=== PATIENT | male | born 1950 | race Caucasian/White ===

== ENCOUNTER 2016-09-12 20:30 | Emergency (ER) | payer MEDICARE, OTHER ==
[~2016-09-12] VITALS: Ht 167.6 cm; Wt 77.5 kg
[~2016-09-12 20:30] MED LIST: ASPI81TA3 PO; BACTDS PO; CETI1TAB6 PO; EMTR1TAB10 PO; FLUT9.9S NASAL; MECL25TA2 PO; MULT-762 PO
[2016-09-12 20:48] VITALS: Ht 167.6 cm; Wt 77.5 kg
[2016-09-12] MEDS ORDERED: KETOROLAC 15 MG INJ IM STA (21:26)
[2016-09-12] MEDS ORDERED: ACETAMINOPHEN 325 MG TAB PO ONE (21:30)
[2016-09-12] MEDS ORDERED: SODI126M NASAL (21:31)
[2016-09-12] MEDS ORDERED: FLUT9.9S NASAL (21:31)
[2016-09-12] MEDS ORDERED: LORA10TA3 PO (21:31)
[2016-09-12] MEDS ORDERED: TRAM50TA2 PO (21:31)
[2016-09-12 22:01] VITALS: BP 160/82; PULSE 78; RESP 18; TEMP 98.6
--- NOTE | 2016-09-12 22:18 | ERD ---
ER Documentation Chief Complaint Date/Time DATE: 09/12/16 TIME: 22:08 Chief Complaint Colds Symptoms with fever and Low back pain HPI 66-year-old male presents with chief complaint of nasal congestion and low back pain times weeks. States that he has been using Afrin for over 5 days, it is the only thing that provides relief of symptoms. He recently was seen at an urgent care with a told to discontinue use of Afrin, prescribed in loratadine and Flonase instead. He is out of these medications now. He denies sore throat , cough, shortness of breath, and fever. In addition he complains of exacerbation of low back pain, which he rates a 10 out of 10 in severity. States that he has a history of chronic back pain, has been diagnosed with herniated disks. His PCP suggested surgery, he refused. He has been taking 800 mg ibuprofen daily without any relief. He denies loss of bowel control, urinary incontinence, dysuria, numbness, and tingling. Denies recent injury. ROS All systems reviewed and are negative except as per history of present illness. Medications Home Meds Active Scripts Tramadol HCl (Tramadol HCl) 50 Mg Tablet, 50 MG PO Q4 Y for PAIN, #20 TAB Prov:Jennifer Brian PA-C 09/12/16 Sodium Chloride (Saline Nasal Mist) 126 Ml Mist, 1 SPRAY NASAL BID for 10 Days, #1 BOTTLE Prov:Jennifer Brian PA-C 09/12/16 Loratadine* (Loratadine*) 10 Mg Tablet, 10 MG PO DAILY, #30 TAB Prov:Jennifer Brian PA-C 09/12/16 Fluticasone Propionate (Flonase Allergy Relief) 9.9 Ml [place].susp, 2 SPRAY NASAL DAILY, #1 BOTTLE TO EACH NOSTRIL Prov:Jennifer Brian PA-C 09/12/16 Fluticasone Propionate (Flonase Allergy Relief) 9.9 Ml [place].susp, 1 SPRAY NASAL DAILY, #1 BOTTLE TO EACH NOSTRIL Prov:MARGARITO MCDUFFIE DO 05/25/16 Cetirizine/Pseudoephedrine (Zyrtec-D) 5-120 Mg Tab.er.12h, 1 TAB PO Q12, #14 TAB Prov:MARGARITO MCDUFFIE DO 05/25/16 Sulfamethoxazole-Trimethoprim* (Bactrim* DS) 800-160 Mg Tab, 1 TAB PO BID, #14 TAB Prov:MARGARITO MCDUFFIE DO 05/25/16 Meclizine Hcl* (Antivert*) 25 Mg Tablet, 25 MG PO Q6H Y for DIZZINESS, #20 TAB Prov:KD RENDON DO 12/11/15 Reported Medications Fushmttdcgixm-Ndonwlgqsat-Faujcqhsf (Complera) 1 Each Tablet, 1 TAB PO DAILY, TAB 06/15/14 Multivitamin (MULTI-VITAMIN DAILY) 1 Each Tablet, 1 TAB PO DAILY, TAB 06/15/14 Aspirin* (Aspirin* Chew) 81 Mg Tab.chew, 81 MG PO DAILY, TAB.CHEW 06/15/14 Allergies Allergies: Coded Allergies: No Known Allergies (Verified Allergy, Mild, 12/11/15) PMhx/Soc Medical and Surgical Hx: pt denies Medical Hx, pt denies Surgical Hx History of Surgery: No Anesthesia Reaction: No Hx Neurological Disorder: No Hx Respiratory Disorders: No Hx Cardiac Disorders: No Hx Psychiatric Problems: No Hx Miscellaneous Medical Probl: Yes (HIV) Hx Alcohol Use: No Hx Substance Use: No Hx Tobacco Use: No Smoking Status: Never smoker Physical Exam Vitals Vital Signs Date Time Temp Pulse Resp B/P Pulse Ox O2 Delivery O2 Flow Rate FiO2 09/12/16 20:48 101.1 91 20 131/76 100 Physical Exam GENERAL: Non-toxic. No apparent signs of distress. HEENT: Atraumatic. Bilateral eyes are PERRL EOM intact. Normal conjunctiva, no injection. No eyelid or lower eyelid swelling noted. Ears: Normal tympanic membrane, no erythema or bulging. No ear canal swelling. No ear discharge. Nose : Clear rhinorrhea. Throat: Oropharynx normal. Tongue pink and moist. No tonsillar swelling or tonsillar exudates. No lymphadenopathy. LUNGS: Clear to auscultation. No accessory muscle use. No wheezing, no crackles. No signs or symptoms of respiratory distress. HEART: Regular rate and rhythm. No murmurs, clicks, rubs or gallops. BACK: No midline tenderness, no costovertebral tenderness. No swelling, erythema or ecchymosis. EXTREMITIES: No peripheral cyanosis or edema. No focal pain or notable trauma. Full range of motion. Good capillary refill. NEURO: The patient moves all 4 extremities with 5/5 strength. Cranial nerves are grossly intact. Normal mental status for age. Good muscle tone. Negative straight leg raise bilaterally. SKIN: There is no apparent rash, petechiae, erythema or swelling. Good skin turgor. Results 24 hrs Current Medications Medications (Trade) Dose Ordered Sig/Rusty Route PRN Reason Start Time Stop Time Status Last Admin Dose Admin Acetaminophen (Tylenol Tab) 650 mg ONCE ONCE PO 09/12/16 21:30 09/12/16 21:31 DC 09/12/16 21:34 Ketorolac Tromethamine (Toradol) 15 mg ONCE STAT IM 09/12/16 21:26 09/12/16 21:29 DC 09/12/16 21:35 Procedures/MDM Patient presented nasal congestion and rhinorrhea. I told him to discontinue use of Afrin as the urgent care suggested as well, for risk of rhinitis medicamentosa. I explained that often should never be used for longer than 3 days. I explained that I would prescribe him Flonase and loratadine, as this is also provided relief, however he is out of his prescription for this. While the patient denied fever, he currently was febrile in triage. I ordered Tylenol. Patient was in no acute distress, stated that he feels fine. His lungs were CTAB, he has no tonsillar edema or erythema or exudate. TMs are pink and pearly and reactive to light reflex. I have low suspicion for otitis media, pneumonia, peritonsillar abscess, pharyngitis, and meningitis. In addition patient complained of exacerbation of low back pain. He denies any recent injury. He denies loss of bowel control or urinary incontinence. He has a normal neurological exam, negative straight leg raise bilaterally. He states he has chronic back pain from herniated disks. Has been taking ibuprofen daily without relief of symptoms. Notes that recent exacerbation is lasted 20 days. I explained that be prescribing a small amount of tramadol, and he should only be using this during episodes of severe back pain. Otherwise he should continue use of ibuprofen or follow-up with his PCP for further management, who already discussed surgical options. Patient was given 15 mg IM Toradol in the ER, states that he had mild relief of symptoms 40 minutes afterwards. At this time a low suspicion for cauda equina syndrome, cord compression, pyelonephritis, AAA, epi dural abscess, and osteomyelitis/ discitis. Patient is stable for discharge and outpatient management. Advised to follow- up with his PCP in 1-2 days. Departure Diagnosis: Primary Impression: Chronic back pain Back pain location: low back pain Back pain laterality: bilateral Sciatica presence: without sciatica Qualified Code: M54.5 - Chronic bilateral low back pain without sciatica Additional Impressions: Nasal congestion Allergic rhinitis Allergic rhinitis seasonality: seasonal Allergic rhinitis trigger: unspecified Qualified Code: J30.2 - Seasonal allergic rhinitis, unspecified allergic rhinitis trigger Condition: Good Patient Instructions: Self-Care for Low Back Pain, Allergic Rhinitis Additional Instructions: Llame al doctor MAANA y makyala rosy FABIO PARA DENTRO DE 1-2 BOSS.Dgale a la secretaria que nosotros le instruimos hacer esta fabio.Avise o llame si holm condicin se empeora antes de la fabio. Regresa aqui si peor o no mejor. Jennifer Brian PA-C Sep 12, 2016 22:17
== END 2016-09-12 22:08 | disposition home or self-care (01) ==
LOC: FTE 20:30
DX: M54.5 Low back pain (principal); R09.81 Nasal congestion; J30.2 Other seasonal allergic rhinitis; Z79.82 Long term (current) use of aspirin
CPT/HCPCS: 96372; 99284; J1885

== ENCOUNTER 2016-11-10 11:34 | Emergency (ER) | payer OTHER ==
[~2016-11-10] VITALS: Ht 172.7 cm; Wt 78.5 kg
[~2016-11-10 11:34] MED LIST changes: +LORA10TA3 PO; +SODI126M NASAL; +TRAM50TA2 PO
[2016-11-10 11:47] VITALS: Ht 172.7 cm; Wt 78.5 kg
[2016-11-10] MEDS ORDERED: traMADol 50 MG TAB PO ONE (12:30)
--- NOTE | 2016-11-10 14:05 | RADRPT ---
PROCEDURE: XR Bilateral Hips. CLINICAL INDICATION: Bilateral hip pain. TECHNIQUE: Four views. Frontal and lateral right hip. Frontal and lateral left hip. COMPARISON: No prior studies are available for comparison. FINDINGS: There is no fracture or dislocation. The soft tissues are normal. Articular surfaces are intact. There is no lytic or blastic lesion. The upper pelvis is not included on the images. IMPRESSION: 1. Unremarkable images of both hips. RPTAT: QQ .Anjum Lama MD, MD Date Time Electronically viewed and signed by .Anjum Lama MD, MD on 11/10/2016 14:04 .R/
[2016-11-10] MEDS ORDERED: NAPR-260 PO (14:11)
[2016-11-10] MEDS ORDERED: BENZ100C70 PO (14:12)
[2016-11-10] MEDS ORDERED: FLUT9.9S NASAL (14:13)
[2016-11-10] MEDS ORDERED: FLUT16SP17 NASAL (14:13)
--- NOTE | 2016-11-10 17:29 | ERD ---
ER Documentation Chief Complaint Date/Time DATE: 11/10/16 TIME: 17:26 Chief Complaint bilateral hip pain and sore throat x 20 days HPI Patient is a 66-year-old male with a past medical history of HIV that is undetectable is here for bilateral buttock pain and sore throat. He states that he has had a sore throat on and off with congestion for 10 days. He denies cough or shortness of breath or chest pain. He denies difficulty breathing. Denies headache or dizziness. He states that his hips and his buttocks have been hurting on and off for the last 1 month. He states that the pain comes and goes. He states that occasionally he has difficulty walking. He states that he possibly has sciatica. He denies any injury or trauma or falls. He denies radiation of pain. Denies back pain. Denies bowel or bladder incontinence. Denies leg pain or leg swelling. Denies recent travel or recent surgeries. She has no other complaints. ROS All systems reviewed and are negative except as per history of present illness. Medications Home Meds Active Scripts Fluticasone Propionate* (Fluticasone Propionate* Nasal) 50 Mcg/[place] - 16 Gm [place].susp, 1 SPRAY NASAL BID, #1 BOTTLE TO EACH NOSTRIL Prov:MANDO ZAMORANO PA-C 11/10/16 Benzonatate* (Tessalon Perle*) 100 Mg Capsule, 100 MG PO Q8H Y for COUGH for 14 Days, CAP Prov:MANDO ZAMORANO PA-C 11/10/16 Naproxen* (Naprosyn*) 500 Mg Tablet, 500 MG PO BID Y for PAIN AND/OR INFLAMMATION, #30 TAB Prov:MANDO ZAMOARNO PA-C 11/10/16 Tramadol HCl (Tramadol HCl) 50 Mg Tablet, 50 MG PO Q4 Y for PAIN, #20 TAB Prov:Jennifer Brian PA-C 09/12/16 Sodium Chloride (Saline Nasal Mist) 126 Ml Mist, 1 SPRAY NASAL BID for 10 Days, #1 BOTTLE Prov:Jennifer Brian PA-C 09/12/16 Loratadine* (Loratadine*) 10 Mg Tablet, 10 MG PO DAILY, #30 TAB Prov:Jennifer Brian PA-C 09/12/16 Fluticasone Propionate (Flonase Allergy Relief) 9.9 Ml [place].susp, 2 SPRAY NASAL DAILY, #1 BOTTLE TO EACH NOSTRIL Prov:Jennifer Brian PA-C 09/12/16 Fluticasone Propionate (Flonase Allergy Relief) 9.9 Ml [place].susp, 1 SPRAY NASAL DAILY, #1 BOTTLE TO EACH NOSTRIL [facility]/16 Cetirizine/Pseudoephedrine (Zyrtec-D) 5-120 Mg Tab.er.12h, 1 TAB PO Q12, #14 TAB [facility] 05/25/16 Sulfamethoxazole-Trimethoprim* (Bactrim* DS) 800-160 Mg Tab, 1 TAB PO BID, #14 TAB Prov[facility] 05/25/16 Meclizine Hcl* (Antivert*) 25 Mg Tablet, 25 MG PO Q6H Y for DIZZINESS, #20 TAB Prov:KD RENDON 12/11/15 Reported Medications Oyppxuakpvrok-Qkqwqxeejhv-Mmyhsggom (Complera) 1 Each Tablet, 1 TAB PO DAILY, TAB 06/15/14 Multivitamin (MULTI-VITAMIN DAILY) 1 Each Tablet, 1 TAB PO DAILY, TAB 06/15/14 Aspirin* (Aspirin* Chew) 81 Mg Tab.chew, 81 MG PO DAILY, TAB.CHEW 06/15/14 Allergies Allergies: Coded Allergies: No Known Allergies (Verified Allergy, Mild, 12/11/15) PMhx/Soc Medical and Surgical Hx: pt denies Medical Hx, pt denies Surgical Hx History of Surgery: No Anesthesia Reaction: No Hx Neurological Disorder: No Hx Respiratory Disorders: No Hx Cardiac Disorders: No Hx Psychiatric Problems: No Hx Miscellaneous Medical Probl: Yes (HIV) Hx Alcohol Use: No Hx Substance Use: No Hx Tobacco Use: No Smoking Status: Current every day smoker FmHx Family History: No coronary disease, No diabetes, No other Physical Exam Vitals Vital Signs Date Time Temp Pulse Resp B/P Pulse Ox O2 Delivery O2 Flow Rate FiO2 11/10/16 11:47 97.7 93 18 138/74 100 Physical Exam GENERAL: Well-developed, well-nourished male. Appears in no acute distress. HEAD: Normocephalic, atraumatic. EYES: Pupils are equally reactive bilaterally. EOMs grossly intact. No conjunctival erythema. ENT: Moist mucous membranes. No uvula deviation. No kissing tonsils. No exudates. NECK: Supple. No lymphadenopathy or thyromegaly. No meningismus. negative kernig. negative brudinski. LUNG: Clear to auscultation bilaterally. No rhonchi, wheezing, rales or coarse breath sounds. HEART: Regular rate and rhythm. No murmurs, rubs or gallops. ABDOMEN: No scars, ecchymosis or rashes noted. Soft, nontender, and nondistended. Positive bowel sounds in all four quadrants. No rebound tenderness , no guarding. (-) McBurneys point tenderness. No CVA tenderness. BACK: No midline tenderness. No spinal or paraspinal tenderness. Extremities: Equal pulses bilaterally. No peripheral clubbing, cyanosis or edema. No unilateral leg swelling. Positive straight leg test bilaterally. Tenderness in the sciatic region. Negative Homans sign. No open wounds or lacerations. No step-offs or deformities. NEUROLOGIC: Alert and oriented. Moving all four extremities. 5/5 strength in all extremities. Normal speech. Steady gait. SKIN: Normal color. Warm and dry. No rashes or lesions. Capillary refill < 2 seconds Results 24 hrs Current Medications Medications (Trade) Dose Ordered Sig/Rusty Route PRN Reason Start Time Stop Time Status Last Admin Dose Admin Tramadol HCl (Ultram) 50 mg ONCE ONCE PO 11/10/16 12:30 11/10/16 12:31 DC 11/10/16 12:31 Procedures/MDM ER COURSE: I kept the patient and/or family informed of laboratory and diagnostic imaging results throughout the emergency room course. IMAGING STUDIES [place] [address] Radiology Main Line: [phone] DIAGNOSTIC IMAGING REPORT Patient: GLADYS MUNOZ : 1950 Age: 66 Sex: M MR #: [id number] DOS: 11/10/16 1225 Ordering MD: MANDO ZAMORANO PA-C Location: [facility] Room/Bed: PROCEDURE: XR Bilateral Hips. CLINICAL INDICATION: Bilateral hip pain. TECHNIQUE: Four views. Frontal and lateral right hip. Frontal and lateral left hip. COMPARISON: No prior studies are available for comparison. FINDINGS: There is no fracture or dislocation. The soft tissues are normal. Articular surfaces are intact. There is no lytic or blastic lesion. The upper pelvis is not included on the images. IMPRESSION: 1. Unremarkable images of both hips. RPTAT: QQ .Anjum Lama MD, MD Date Time Electronically viewed and signed by .Anjum Lama MD, MD on 11/10/2016 14:04 .R/ CC: MANDO ZAMORANO PA-C MEDICATIONS Tramadol. Tolerated well with no adverse reaction. MEDICAL DECISION MAKING: This is a 66-year-old male who presents with bilateral buttock pain and sore throat. Vital signs were reviewed. Patient is afebrile. Patient is not hypoxic. Patient is nontoxic or ill-appearing. His sore throat is likely related to a URI of viral etiology. I do not think patient needs antibiotics or x-ray at this time as his lung examination is within normal limits and he has a normal oxygen saturation. His x-rays of by radiologist is unremarkable for fracture dislocation patient likely has sciatica. Low suspicion for pneumonia, PE, pneumothorax, ACS, epiglottitis, obstruction, TB, pertussis, meningitis, sepsis. Low suspicion for peritonsillar abscess, strep pharyngitis, mononucleosis, dental abscess Low suspicion for ACS, PE, AAA, dissection, DVT. Low suspicion for dislocation, fracture, septic joint, compartment syndrome, osteomyelitis, cellulitis, avascular necrosis, neurological injury, vascular injury, tendon laceration. DISCHARGE: At this time, patient is stable for discharge and outpatient management with no new complaints during the ER course. Patient was sent home with fluticasone, Tessalon Perles and Naprosyn.,. Patient will be discharged home with instructions to recheck for new or worsening symptoms such as fever, nausea, weakness, LOC and to follow up with primary care in the next 1-2 days. Patient was advised to return to the ER for any new or worsening symptoms. Plan was discussed and patient and/or family understands and agrees. Home instructions were given. Departure Diagnosis: Primary Impression: URI, acute Additional Impression: Sciatica Laterality: bilateral Qualified Code: M54.31 - Bilateral sciatica Condition: Stable Patient Instructions: Understanding Sciatica, Back Pain W/ Sciatica Referrals: ESE RHODES MD Additional Instructions: Llame al doctor MAANA y makayla rosy FABIO PARA DENTRO DE 1-2 BOSS.Dgale a la secretaria que nosotros le instruimos hacer esta fabio.Avise o llame si holm condicin se empeora antes de la fabio. Regresa aqui si peor o no mejor. MANDO ZAMORANO PA-C November 10, 2016 17:29
== END 2016-11-10 14:29 | disposition home or self-care (01) ==
LOC: FTE 11:34
DX: J06.9 Acute upper respiratory infection, unspecified (principal); M54.31 Sciatica, right side; M54.32 Sciatica, left side; F17.210 Nicotine dependence, cigarettes, uncomplicated; Z79.82 Long term (current) use of aspirin
CPT/HCPCS: 73520

== ENCOUNTER 2017-02-22 14:16 | Emergency (ER) | payer OTHER ==
[~2017-02-22] VITALS: Ht 170.2 cm; Wt 79.5 kg
[~2017-02-22 14:16] MED LIST changes: +BENZ100C70 PO; +FLUT16SP17 NASAL; +NAPR-260 PO
[2017-02-22 14:32] VITALS: Ht 170.2 cm; Wt 79.5 kg
[2017-02-22] MEDS ORDERED: ACETAMINOPHEN 325 MG TAB PO STA (17:52)
[2017-02-22] MEDS ORDERED: ACET325T33 PO ×2 (18:27→19:56)
[2017-02-22] MEDS ORDERED: ACET160S2 PO (18:33)
[2017-02-22 18:50] LABS: BASOPHIL # 0.1 10^3/ul (0.0-0.1); BASOPHILS % 0.7 % (0.0-2.0); EOSINOPHILS # 0.3 10^3/ul (0.0-0.5); EOSINOPHILS % 4.5 % (0.0-7.0); HEMATOCRIT 40.2 % (42.0-52.0); HEMOGLOBIN 13.8 g/dl (14.0-18.0); LYMPHOCYTES # 2.7 10^3/ul (0.8-2.9); LYMPHOCYTES % 36.5 % (15.0-51.0); MEAN CORPUSCULAR HGB CONC 34.3 g/dl (32.0-37.0); MEAN CORPUSCULAR VOLUME 87.4 fl (82.0-101.0); MEAN PLATELET VOLUME 9.1 fl (7.4-10.4); MONOCYTE # 0.7 10^3/ul (0.3-0.9); MONOCYTES % 8.8 % (0.0-11.0); NEUTROPHILS % 49.1 % (39.0-77.0); PLATELET COUNT 309 10^3/UL (140-415); RED CELL DISTRIBUTION WIDTH 12.7 % (11.5-14.5); WHITE BLOOD COUNT 7.5 10^3/ul (4.8-10.8)
--- NOTE | 2017-02-22 19:01 | ERD ---
ER Documentation Chief Complaint Date/Time DATE: 02/22/17 TIME: 18:59 Chief Complaint BACK PAIN , SOB, FEVER 5 DAYS AGO HPI 67-year-old male with history of HIV presents to the emergency department complaining of posterior back pain and shortness of breath that has been worsening in the past 5 days. Patient states that he started off with a fever and flulike symptoms. Patient denies any nausea vomiting diarrhea ROS All systems reviewed and are negative except as per history of present illness. Medications Home Meds Active Scripts Acetaminophen* (Tylenol*) 325 Mg Tablet, 2 TAB PO Q6 Y for PAIN AND OR ELEVATED TEMP, #20 TAB Prov:MARLENA KIM PA-C 02/22/17 Azithromycin* (Zithromax*) 250 Mg Tablet, 250 MG PO .ZPACK DIRECTED, #6 TAB TAKE 500 MG (2 TABS) THE FIRST DAY THEN 250 MG (1 TAB) DAYS 2-5 Prov:MARLENA KIM PA-C 02/22/17 Fluticasone Propionate* (Fluticasone Propionate* Nasal) 50 Mcg/[place] - 16 Gm [place].susp, 1 SPRAY NASAL BID, #1 BOTTLE TO EACH NOSTRIL Prov:MANDO ZAMORANO PA-C 11/10/16 Benzonatate* (Tessalon Perle*) 100 Mg Capsule, 100 MG PO Q8H Y for COUGH for 14 Days, CAP Prov:MANDO ZAMORANO PA-C 11/10/16 Naproxen* (Naprosyn*) 500 Mg Tablet, 500 MG PO BID Y for PAIN AND/OR INFLAMMATION, #30 TAB Prov:MANDO ZAMORANO PA-C 11/10/16 Tramadol HCl (Tramadol HCl) 50 Mg Tablet, 50 MG PO Q4 Y for PAIN, #20 TAB Prov:Jennifer Brian PA-C 09/12/16 Sodium Chloride (Saline Nasal Mist) 126 Ml Mist, 1 SPRAY NASAL BID for 10 Days, #1 BOTTLE Prov:Jennifer Brian PA-C 09/12/16 Loratadine* (Loratadine*) 10 Mg Tablet, 10 MG PO DAILY, #30 TAB Prov:Jennifer Brian PA-C 09/12/16 Fluticasone Propionate (Flonase Allergy Relief) 9.9 Ml [place].susp, 2 SPRAY NASAL DAILY, #1 BOTTLE TO EACH NOSTRIL Prov:Jennifer Brian PA-C 09/12/16 Fluticasone Propionate (Flonase Allergy Relief) 9.9 Ml [place].susp, 1 SPRAY NASAL DAILY, #1 BOTTLE TO EACH NOSTRIL [facility] 05/25/16 Cetirizine/Pseudoephedrine (Zyrtec-D) 5-120 Mg Tab.er.12h, 1 TAB PO Q12, #14 TAB [facility] 05/25/16 Sulfamethoxazole-Trimethoprim* (Bactrim* DS) 800-160 Mg Tab, 1 TAB PO BID, #14 TAB Prov[facility] 05/25/16 Meclizine Hcl* (Antivert*) 25 Mg Tablet, 25 MG PO Q6H Y for DIZZINESS, #20 TAB Prov:KD REDNON 12/11/15 Reported Medications Ceydleosefyyr-Ujnxwfznbux-Yzcnspyxg (Complera) 1 Each Tablet, 1 TAB PO DAILY, TAB 06/15/14 Multivitamin (MULTI-VITAMIN DAILY) 1 Each Tablet, 1 TAB PO DAILY, TAB 06/15/14 Aspirin* (Aspirin* Chew) 81 Mg Tab.chew, 81 MG PO DAILY, TAB.CHEW 06/15/14 Allergies Allergies: Coded Allergies: No Known Allergies (Verified Allergy, Mild, 12/11/15) PMhx/Soc History of Surgery: No Anesthesia Reaction: No Hx Neurological Disorder: No Hx Respiratory Disorders: No Hx Cardiac Disorders: No Hx Psychiatric Problems: No Hx Miscellaneous Medical Probl: Yes (HIV) Hx Alcohol Use: No Hx Substance Use: No Hx Tobacco Use: No Physical Exam Vitals Vital Signs Date Time Temp Pulse Resp B/P Pulse Ox O2 Delivery O2 Flow Rate FiO2 02/22/17 14:32 98.7 89 18 130/72 98 Physical Exam Const: Well-developed well-nourished no acute distress Head: Atraumatic Eyes: Normal Conjunctiva ENT: Normal External Ears, Nose and Mouth. Neck: Full range of motion..~ No meningismus. Resp: Clear to auscultation bilaterally Cardio: Regular rate and rhythm, no murmurs Abd: Soft, non tender, non distended. Normal bowel sounds Skin: No petechiae or rashes Back: No midline or flank tenderness Ext: No cyanosis, or edema Neur: Awake and alert Psych: Normal Mood and Affect Result Diagram: 02/22/17184402/22/171844 Results 24 hrs Laboratory Tests Test 02/22/17 18:45 White Blood Count 7.510^3/ul Red Blood Count 4.6010^6/ul Hemoglobin 13.8g/dl Hematocrit 40.2% Mean Corpuscular Volume 87.4fl Mean Corpuscular Hemoglobin 30.0pg Mean Corpuscular Hemoglobin Concent 34.3g/dl Red Cell Distribution Width 12.7% Platelet Count 14816^3/UL Mean Platelet Volume 9.1fl Neutrophils % 49.1% Lymphocytes % 36.5% Monocytes % 8.8% Eosinophils % 4.5% Basophils % 0.7% Nucleated Red Blood Cells % 0.0/100WBC Neutrophils # (Manual) 3.710^3/ul Lymphocytes # 2.710^3/ul Monocytes # 0.710^3/ul Eosinophils # 0.310^3/ul Basophils # 0.110^3/ul Nucleated Red Blood Cells # 0.010^3/ul Sodium Level 143mmol/L Potassium Level 3.7mmol/L Chloride Level 102mmol/L Carbon Dioxide Level 28mmol/L Anion Gap 17 Blood Urea Nitrogen 14mg/dl Creatinine 1.01mg/dl Glucose Level 94mg/dl Calcium Level 9.1mg/dl Total Bilirubin 0.0mg/dl Direct Bilirubin 0.00mg/dl Indirect Bilirubin 0.0mg/dl Aspartate Amino Transf (AST/SGOT) 36IU/L Alanine Aminotransferase (ALT/SGPT) 39IU/L Alkaline Phosphatase 72IU/L Troponin I < 0.012ng/ml Total Protein 8.0g/dl Albumin 4.1g/dl Globulin 3.90g/dl Albumin/Globulin Ratio 1.05 Current Medications Medications (Trade) Dose Ordered Sig/Rusty Route PRN Reason Start Time Stop Time Status Last Admin Dose Admin Acetaminophen (Tylenol Tab) 650 mg ONCE STAT PO 02/22/17 17:52 02/22/17 18:01 DC Procedures/MDM 67-year-old male with history of HIV positive presents to the emergency department complaining of flulike symptoms, shortness of breath for the past 5 daysOn examination, there was no evidence of respiratory distress. Low suspicion for ACS, EKG did not show any evidence of STEMI or dysrhythmia. Troponin negative. Patient's lungs are clear to auscultation bilaterally. A chest x-ray was done and showed evidence of atelectasis in the left lower base. Patient will be empirically treated for bronchitis with Z-Jose L I discussed the patient to follow-up with his primary care physician. Discussed return the ER for any worsening sensitive. He understands and agrees to this plan.. EKG: read and signed off by myself and Dr. Dorman Rate/Rhythm: [Normal Sinus Rhythm 74 bpm] QRS, ST, T-waves: [flattened T wave avL, aVF] Impression: [No evidence of STEMI or arrhythmia] Departure Diagnosis: Primary Impression: URI (upper respiratory infection) Additional Impression: Shortness of breath Condition: Stable MARLENA KIM PA-C Feb 22, 2017 19:01
[2017-02-22 19:08] LABS: ALBUMIN 4.1 g/dl (3.3-4.9); ALBUMIN/GLOBULIN RATIO 1.05; CALCIUM 9.1 mg/dl (8.4-10.2); CREATININE 1.01 mg/dl (0.61-1.24); POTASSIUM 3.7 mmol/L (3.5-5.1)
--- NOTE | 2017-02-22 19:47 | RADRPT ---
PROCEDURE: XR Chest. CLINICAL INDICATION: Dyspnea. Chest pain. TECHNIQUE: Single frontal view of the chest. COMPARISON: Plain film chest dated 12/11/2015. FINDINGS: Heart size is at upper limits of normal. New mild atelectasis at the left lung base. The lungs are o therwise clear. No signs of pleural fluid or pneumothorax are seen. The osseous structures and soft tissues are unremarkable. IMPRESSION: 1. New mild atelectasis at the left lung base. 2. Otherwise, no evidence for active cardiopulmonary disease. RPTAT: [facility] Physician Angela Date Time Electronically viewed and signed by Physician Angela on 02/22/2017 19:47 RS/
[2017-02-22] MEDS ORDERED: AZIT250T94 PO (19:56)
[2017-02-22 20:08] VITALS: BP 138/84; PULSE 77; RESP 20; TEMP 98.4
== END 2017-02-22 20:11 | disposition home or self-care (01) ==
LOC: FTE 14:16
DX: J06.9 Acute upper respiratory infection, unspecified (principal); R06.02 Shortness of breath; Z79.82 Long term (current) use of aspirin
CPT/HCPCS: 71010; 80053; 84484; 85025; 93005

== ENCOUNTER 2017-05-14 21:32 | Emergency (ER) | payer OTHER ==
[~2017-05-14] VITALS: Ht 167.6 cm; Wt 82.4 kg
[~2017-05-14 21:32] MED LIST changes: +ACET325T33 PO; +AZIT250T94 PO
[2017-05-14 21:42] VITALS: Ht 167.6 cm; Wt 82.4 kg
[2017-05-15] MEDS ORDERED: DEXAMETHASONE 10 MG/ML 1 ML INJ IM ONE
[2017-05-15] MEDS ORDERED: BEN25 PO (00:15)
--- NOTE | 2017-05-15 00:21 | ERD ---
ER Documentation Chief Complaint Chief Complaint body rash x 3 days (MAURICE HUERTAS NP) HPI 67-year-old male complaining of pruritic skin rash times a days. Patient stated that he changed the soap about a days ago. Upon reflection, patient stated that the rash usually appears in the evening, after he uses the soap in the shower before bedtime. Denies shortness of breath. Denies oral facial swelling. Denies exposure to new foods. (MAURICE HUERTAS NP) ROS All systems reviewed and are negative except as per history of present illness. (MAURICE HUERTAS NP) Medications Home Meds Active Scripts Diphenhydramine Hcl* (Benadryl*) 25 Mg Cap, 25 MG PO Q6 Y for ITCHING/RASH, #30 TAB Prov:MAURICE HUERTAS NP 05/15/17 Acetaminophen* (Tylenol*) 325 Mg Tablet, 2 TAB PO Q6 Y for PAIN AND OR ELEVATED TEMP, #20 TAB Prov:MARLENA KIM PA-C 02/22/17 Azithromycin* (Zithromax*) 250 Mg Tablet, 250 MG PO .ZPACK DIRECTED, #6 TAB TAKE 500 MG (2 TABS) THE FIRST DAY THEN 250 MG (1 TAB) DAYS 2-5 Prov:MARLENA KIM PA-C 02/22/17 Fluticasone Propionate* (Fluticasone Propionate* Nasal) 50 Mcg/[place] - 16 Gm [place].susp, 1 SPRAY NASAL BID, #1 BOTTLE TO EACH NOSTRIL Prov:MANDO ZAMORANO PA-C 11/10/16 Benzonatate* (Tessalon Perle*) 100 Mg Capsule, 100 MG PO Q8H Y for COUGH for 14 Days, CAP Prov:MANDO ZAMORANO PA-C 11/10/16 Naproxen* (Naprosyn*) 500 Mg Tablet, 500 MG PO BID Y for PAIN AND/OR INFLAMMATION, #30 TAB Prov:MANDO ZAMORANO PA-C 11/10/16 Tramadol HCl (Tramadol HCl) 50 Mg Tablet, 50 MG PO Q4 Y for PAIN, #20 TAB Prov:Jennifer Brian PA-C 09/12/16 Sodium Chloride (Saline Nasal Mist) 126 Ml Mist, 1 SPRAY NASAL BID for 10 Days, #1 BOTTLE Prov:Didier Brianjosef DUGGAN 09/12/16 Loratadine* (Loratadine*) 10 Mg Tablet, 10 MG PO DAILY, #30 TAB Prov:Didier Brianjosef BANEGAS-C 09/12/16 Fluticasone Propionate (Flonase Allergy Relief) 9.9 Ml [place].susp, 2 SPRAY NASAL DAILY, #1 BOTTLE TO EACH NOSTRIL Prov:Didier Brianjosef BANEGAS-[place] 09/12/16 Fluticasone Propionate (Flonase Allergy Relief) 9.9 Ml [place].susp, 1 SPRAY NASAL DAILY, #1 BOTTLE TO EACH NOSTRIL [facility] 05/25/16 Cetirizine/Pseudoephedrine (Zyrtec-D) 5-120 Mg Tab.er.12h, 1 TAB PO Q12, #14 TAB [facility] 05/25/16 Sulfamethoxazole-Trimethoprim* (Bactrim* DS) 800-160 Mg Tab, 1 TAB PO BID, #14 TAB Prov:[facility] 05/25/16 Meclizine Hcl* (Antivert*) 25 Mg Tablet, 25 MG PO Q6H Y for DIZZINESS, #20 TAB Prov:JAYJAYPAKODEUCEGEENA 12/11/15 Reported Medications Edznxbdzoowgm-Amcxmgorujn-Yltzrdfwu (Complera) 1 Each Tablet, 1 TAB PO DAILY, TAB 06/15/14 Multivitamin (MULTI-VITAMIN DAILY) 1 Each Tablet, 1 TAB PO DAILY, TAB 06/15/14 Aspirin* (Aspirin* Chew) 81 Mg Tab.chew, 81 MG PO DAILY, TAB.CHEW 06/15/14 Allergies Allergies: Coded Allergies: No Known Allergies (Verified Allergy, Mild, 05/14/17) PMhx/Soc Medical and Surgical Hx: pt denies Surgical Hx History of Surgery: No Anesthesia Reaction: No Hx Neurological Disorder: No Hx Respiratory Disorders: No Hx Cardiac Disorders: No Hx Psychiatric Problems: No Hx Miscellaneous Medical Probl: Yes (HIV) Hx Alcohol Use: No Hx Substance Use: No Hx Tobacco Use: No Smoking Status: Never smoker (MAURICE HUERTAS NP) Physical Exam Vitals Vital Signs Date Time Temp Pulse Resp B/P Pulse Ox O2 Delivery O2 Flow Rate FiO2 05/15/17 00:42 98.2 83 20 100 Room Air 05/14/17 21:42 97.5 86 20 160/74 99 (RACIEL SHAH DO) Physical Exam General: Well-developed, well-nourished, conscious and coherent, in no distress Skin: Warm and dry, good texture and turgor. Widespread, diffuse urticarial lesions noted throughout the torso. Head: Normocephalic without evidence of trauma Eyes: Sclera and conjunctivae normal; pupils equal, round, and reactive to light; extraocular movements are intact Mouth/throat: Mucous membranes are moist. Posterior pharynx clear without erythema or exudates Neck: Supple without meningismus or adenopathy. Carotids are equal. Trachea midline. No bruits or JVD Chest: Normal AP diameter. Good expansion without retractions. Nontender. Lungs are clear to auscultate bilaterally with good tidal volume Heart: Regular rate and rhythm. No murmur, rub, or gallops heard Extremities: Full range of motion. Good strength bilaterally. No clubbing, cyanosis, or edema. Peripheral pulses are intact. Sensation intact Neuro: Alert and oriented 4, GCS 15. Cranial nerves grossly intact. Motor and sensory exams nonfocal. Moves all extremities. Speech clear. Gait normal (MAURICE HUERTAS. JIM) Results 24 hrs Current Medications Medications (Trade) Dose Ordered Sig/Rusty Route PRN Reason Start Time Stop Time Status Last Admin Dose Admin Dexamethasone (Decadron) 8 mg ONCE ONCE IM 05/15/17 00:00 05/15/17 00:01 DC 05/15/17 00:07 (RACIEL SHAH DO) Procedures/MDM Well-appearing 67-year-old male present ED was urticarial skin lesions, likely secondary to the new soap. No sign of anaphylaxis or angioedema. I doubt toxic shock syndrome, streptococcal scalded disease syndrome, toxic epidermal necrolysis, Dobbs-Jonel syndrome, [place] spotted fever. Patient is advised to stop using his new soap. Dexamethasone 8 mg IM given to the patient in the ED. Patient drove here by himself, I do not feel comfortable to give him Benadryl at this time. However, I told patient I will prescribe Benadryl for him and he can take it at home. Patient appears well, stable for discharge and outpatient management. Medical decision making shared with patient and family. Education provided to patient and family. Patient and family expressed understanding of the plan. Medications on discharge: Benadryl. Follow-up: Primary care provider in 2-3 days or return to ED if worse. Disclaimer: Inadvertent spelling and grammatical errors are likely due to EHR/ dictation software use and do not reflect on the overall quality of patient care. Also, please note that the electronic time recorded on this note does not necessarily reflect the actual time of the patient encounter. (MAURICE HUERTAS NP) I agree with the documentation and management of this elderly male with a nonemergent rash and appropriate follow up. (RACIEL SHAH DO) Departure Diagnosis: Primary Impression: Urticaria Condition: Stable Patient Instructions: Hives [facility] Usted se méndez hecho un examen mdico de control que le indica que no est en rosy condicin que requiera tratamiento urgente en el Departamento de Emergencia. Un estudio ms profundo y el tratamiento de holm condicin pueden esperar sin ningn riesgo hasta que usted sea atendida/o en el consultorio de holm mdico o rosy cl jignesh. Es responsabilidad suya arreglar rosy fabio para el seguimiento del dexter. MANEJO DE CONDICIONES NO URGENTES EN EL FUTURO 1) Si usted tiene un mdico de atencin primaria: Usted debera llamar a holm mdico de atencin primaria antes de venir al departamento de emergencia. Despus de las horas de consultorio, holm doctor o holm asociado/a est disponible por telfono. El mdico o enfermero de maria m en el servicio telefnico puede asesorarle por marietta medio para atender el problema, o dexter contrario se puede programar rosy fabio. 2) Si usted no tiene un mdico de atencin primaria: Llame al mdico o clnica de referencia que aparece abajo guicho las horas de consultorio para hacer rosy fabio para que le vean. CLINICAS: [facility] [id number] [facility] [phone] [facility] [phone] [place] [address] [phone] [place] [phone] [facility] [phone] [address] Additional Instructions: Llame al doctor MAANA y makayla rosy FABIO PARA DENTRO DE 2-3 BOSS.Dgale a la secretaria que nosotros le instruimos hacer esta fabio.Avise o llame si holm condicin se empeora antes de la fabio. Regresa aqui si peor o no mejor. MAURICE HUERTAS NP May 15, 2017 00:21 RACIEL SHAH DO May 17, 2017 09:20
[2017-05-15 00:42] VITALS: PULSE 83; RESP 20; TEMP 98.2
== END 2017-05-15 00:40 | disposition home or self-care (01) ==
LOC: FTE 21:32
DX: L50.9 Urticaria, unspecified (principal); Z79.82 Long term (current) use of aspirin
CPT/HCPCS: 96372; 99284; J1100

== ENCOUNTER 2017-08-13 17:10 | Emergency (ER) | END 2017-08-13 20:58 | disposition home or self-care (01) ==

== ENCOUNTER 2017-08-20 16:30 | Emergency (ER) | END 2017-08-20 21:30 | disposition home or self-care (01) ==

== ENCOUNTER 2017-10-03 03:08 | Emergency (ER) | END 2017-10-03 07:17 | disposition home or self-care (01) ==

== ENCOUNTER 2017-10-11 02:11 | Emergency (ER) | END 2017-10-11 06:20 | disposition home or self-care (01) ==

== ENCOUNTER 2017-11-28 07:16 | Emergency (ER) | END 2017-11-28 09:07 | disposition home or self-care (01) ==

== ENCOUNTER 2017-12-31 13:25 | Emergency (ER) | END 2017-12-31 19:07 | disposition home or self-care (01) ==

== ENCOUNTER 2018-01-24 09:40 | Emergency (ER) | END 2018-01-24 11:45 | disposition home or self-care (01) ==

== ENCOUNTER 2018-01-30 12:23 | Emergency (ER) | END 2018-01-30 16:40 | disposition home or self-care (01) ==

== ENCOUNTER 2018-02-06 01:46 | Observation (INO) | END 2018-02-06 18:34 | disposition home or self-care (01) ==